=== PATIENT | female | born 1965 | race Caucasian/White ===

== ENCOUNTER 2019-08-27 12:52 | Inpatient (IN) | payer OTHER ==
--- NOTE | 2019-08-27 13:14 | BHS.RME ---
Substance Use & Tx History - Substance Use History Heroin Substance amount: $100 Frequency of use: Daily Substance route: Inhalation (ex: sniffing or snorting), Injection (ex: intravenous or skin popping) Date of Last Use: 08/25/19 Nicotine Substance amount: 1/2 pack Frequency of use: Daily Substance route: Smoking Date of Last Use: 08/27/19 Physical/Psych/Mental Status - Behavior General Behavior: Increased activity (restlessness, agitation) Eye Contact: Normal - Cooperativeness Cooperativeness: Cooperative - Thinking Thought Processes: Tight, Logical, Goal Directed - Physical Health Problems Is patient presently having any pain?: No Does patient presently have any injuries (include location): No Does patient currently have a fever: No Is patient : No COWS - Scale Resting Pulse: 0= [place] 80 or Below Sweatin= Beads of Sweat on Face Restless Observation: 3= Extraneous Movement Pupil Size: 2= Moderately Dilated Bone or Joint Aches: 4=Acute Joint/Muscle Pain Runny Nose/ Eye Tearin= Constantly Teary/Runny GI Upset > 30mins: 3= Vomiting/Diarrhea Tremor Observation: 4= Gross Tremor/Twitching Yawning Observation: 1= 1-2x During Session Anxiety or Irritability: 2=Irritable/Anxious Goose Flesh Skin: 3=Piloerection COWS Score: 29
--- NOTE | 2019-08-27 14:22 | HP ---
COWS - Scale Resting Pulse: 0= [place] 80 or Below Sweatin= Beads of Sweat on Face Restless Observation: 3= Extraneous Movement Pupil Size: 2= Moderately Dilated Bone or Joint Aches: 4=Acute Joint/Muscle Pain Runny Nose/ Eye Tearin= Constantly Teary/Runny GI Upset > 30mins: 3= Vomiting/Diarrhea Tremor Observation: 4= Gross Tremor/Twitching Yawning Observation: 1= 1-2x During Session Anxiety or Irritability: 2=Irritable/Anxious Goose Flesh Skin: 3=Piloerection COWS Score: 29 CIWA Score - Admission Criteria OASAS Guidelines: Admission for Medically Managed Detox: Requires at least one of the followin. CIWA greater than 12 2. Seizures within the past 24 hours 3. Delirium tremens within the past 24 hours 4. Hallucinations within the past 24 hours 5. Acute intervention needed for co occurring medical disorder 6. Acute intervention needed for co occurring psychiatric disorder 7. Severe withdrawal that cannot be handled at a lower level of care (continued vomiting, continued diarrhea, abnormal vital signs) requiring intravenous medication and/or fluids 8. Admitting History and Physical - Admission Chief Complaint: Ms. Anton is a 54 yo woman who presents to [facility] requesting admission to detox for heroin use disorder. History of Present Illness: Ms. Anton is a 54 yo woman who presents to [facility] requesting admission to detox for heroin use disorder. This is her first [facility] admission PMH: Parkinson's disease on carbidopa/levodopa (names/doses of meds unknown) Diabetes type 2, hypothyroidism, positive COVID 19 (June 2018): was in [facility] then to transitional housing for one month PSH:Back surgery for herniated discs Psych: anxiety, bipolar on meds SOC: homeless, in transitional housing: [facility] in the [facility] Legal: none Substance Use History Heroin Substance amount: $100 Frequency of use: Daily Substance route: Inhalation (ex: sniffing or snorting), Injection (ex: intravenous or skin popping) Date of Last Use: 08/25/19 First use in her 's () Overdoses: 4-5, last one was one week ago. Has Narcan at home Relapsed one month to two months ago Nicotine Substance amount: 1/2 pack Frequency of use: Daily Substance route: Smoking Date of Last Use: 08/27/19 First use age 50yo Alcohol No use in 3 years History Source: Patient Limitations to Obtaining History: No Limitations Admission ROS [facility] - HPI Allergies/Adverse Reactions: Allergies Allergy/AdvReac Type Severity Reaction Status Date / Time No Known Drug Allergies Allergy Verified 08/27/19 14:46 Exam Limitations: No Limitations - Ebola screening Have you traveled outside of the country in the last 21 days: No Have you been sick,other than usual withdrawal symptoms: No Do you have a fever: No - Review of Systems Constitutional: Unintentional Wgt. Loss (60 lb weight loss since May of 2019) EENT: reports: Blurred Vision (has reading glasses with her) Respiratory: reports: No Symptoms reported Cardiac: reports: No Symptoms Reported GI: reports: Diarrhea, Nausea, Vomiting : reports: No Symptoms Reported Musculoskeletal: reports: Back Pain, Joint Pain, Muscle Pain, Other (fell several days ago while intoxicated, struck left > right elbow, no LOC) Integumentary: reports: No Symptoms Reported Neuro: reports: Headache Endocrine: reports: Other (checks home glucose, last checked yesterday: 89 in the early afternoon) Hematology: reports: No Symptoms Reported Psychiatric: reports: Anxious Patient History - Smoking Cessation Smoking history: Current every day smoker Have you smoked in the past 12 months: Yes Aproximately how many cigarettes per day: 10 Hx Chewing Tobacco Use: No Initiated information on smoking cessation: Yes 'Breaking Loose' booklet given: 08/27/19 Admission Physical Exam [facility] Physical General Appearance: Yes: Mild Distress, Thin, Anxious HEENTM: Yes: Hearing grossly Normal, Normocephalic, Normal Voice Respiratory: Yes: Lungs Clear, Normal Breath Sounds Neck: Yes: Within Normal Limits, Supple Breast: Yes: Breast Exam Deferred Cardiology: Yes: Regular Rhythm, Regular Rate, S1, S2 Abdominal: Yes: Normal Bowel Sounds, Non Tender, Flat, Soft Back: Yes: Normal Inspection Musculoskeletal: Yes: Within Normal Limits Extremities: Yes: Non-Tender Neurological: Yes: Alert, Normal Response Integumentary: Yes: Track Beaulieu (left antecubital fossa), Other (superficial abrasion left >right elbow, scabbed) Lymphatic: Yes: Within Normal Limits - Diagnostic (1) Opioid withdrawal Current Visit: Yes Status: Acute (2) Diabetes Current Visit: No Status: Chronic (3) Hypothyroidism Current Visit: No Status: Chronic (4) Bipolar 1 disorder Current Visit: Yes Status: Chronic (5) Homeless Current Visit: Yes Status: Chronic Cleared for Admission [facility] - Detox or Rehab [facility] Level of Care: Medically Managed Detox Regimen/Protocol: Methadone Inpatient Rehab Admission - Rehab Decision to Admit Inpatient rehab admission?: No
[2019-08-27] MEDS ORDERED: MAGNESIUM CITRATE 300 ML BOTTLE PO PRN (14:46)
[2019-08-27] MEDS ORDERED: MAGNESIUM HYDROX 2400MG/30ML ORAL SUSPENSION 30 ML CUP PO PRN (14:46)
[2019-08-27] MEDS ORDERED: METHOCARBAMOL 500 MG TABLET PO PRN (14:46)
[2019-08-27] MEDS ORDERED: ONDANSETRON *ODT* 4 MG TABLET SL PRN (14:46)
[2019-08-27] MEDS ORDERED: METHADONE HCL 10 MG TABLET (FOR DETOX USE ONLY) PO ONE (14:46)
[2019-08-27] MEDS ORDERED: MAG HYDROX/AL HYDROX/SIMETH 30 ML UNIT-DOSE CUP PO PRN (14:46)
[2019-08-27] MEDS ORDERED: NICOTINE POLACRILEX 2 MG GUM BUC PRN (14:46)
[2019-08-27] MEDS ORDERED: MENTHOL/PHENOL 1 EACH UD MM PRN (14:46)
[2019-08-27] MEDS ORDERED: ACETAMINOPHEN 325 MG TABLET (FP) PO PRN ×2 (14:46)
[2019-08-27] MEDS ORDERED: IBUPROFEN 400 MG TABLET (FP) PO PRN (14:46)
[2019-08-27] MEDS ORDERED: BISMUTH SUBSALICYLATE 262 MG/15 ML BTL PO PRN (14:46)
[2019-08-27] MEDS ORDERED: cloNIDine HCL 0.1 MG TABLET PO PRN (14:46)
[2019-08-27 15:27] VITALS: BMI 25.2
--- NOTE | 2019-08-27 15:31 | EKG ---
Test Reason : Blood Pressure : / mmHG Vent. Rate : 070 BPM Atrial Rate : 070 BPM P-R Int : 160 ms QRS Dur : 094 ms QT Int : 420 ms P-R-T Axes : 038 015 040 degrees QTc Int : 453 ms NORMAL SINUS RHYTHM NORMAL ECG NO PREVIOUS ECGS AVAILABLE Confirmed by Yang Davey ([id number]) on 08/27/2019 3:31:03 PM Referred By: Confirmed By:Yang Davey
[2019-08-27] MEDS ORDERED: TUBERCULIN PPD 5 TU/0.1ML VIAL ID ONE (17:13)
[2019-08-27 17:16] LABS: HEMOGLOBIN 10.4 GM/dL (10.7-15.3); MCH 27.6 pg (25.7-33.7); MCHC 32.3 g/dl (32.0-36.0); MEAN CELL VOLUME 85.3 fl (80-96); MEAN PLT VOLUME 9.6 fl (7.5-11.1); PLATELET COUNT 238 K/MM3 (134-434); RBC 3.75 M/mm3 (3.60-5.2); RDW 16.1 % (11.6-15.6); WHITE BLOOD COUNT 7.2 K/mm3 (4.0-10.0)
[2019-08-27] MEDS: hydrOXYzine PAMOATE 25 MG CAPSULE (FP) PO SCH ×2 (17:17→22:06)
[2019-08-27] MEDS: PRENATAL VITAMINS W/ FOLIC ACID TABLET (FP) PO SCH (17:18)
[2019-08-27] MEDS: NICOTINE 14 MG/24 HOURS TOPICAL PATCH TD SCH (17:23)
[2019-08-27] MEDS: INSULIN SLIDING SCALE (NOVOLOG) 1 VIAL SQ SCH ×2 (17:25→21:18)
[2019-08-27 17:34] LABS: ALBUMIN 3.3 g/dl (3.4-5.0); BILIRUBIN,TOTAL 0.3 mg/dL (0.2-1); BLOOD UREA NITROGEN 13.5 mg/dL (7-18); CALCIUM 8.7 mg/dL (8.5-10.1); CREATININE 0.8 mg/dL (0.55-1.3); POTASSIUM 3.9 mmol/L (3.5-5.1); TOT PROT 6.2 g/dl (6.4-8.2)
[2019-08-27] MEDS: MELATONIN 5 MG TABLETS PO SCH (22:06)
[2019-08-27] MEDS: THIAMINE HCL 100 MG TABLET (FP) PO SCH (22:06)
[2019-08-28] MEDS: hydrOXYzine PAMOATE 25 MG CAPSULE (FP) PO SCH ×2 (07:19→13:14)
[2019-08-28] MEDS: INSULIN SLIDING SCALE (NOVOLOG) 1 VIAL SQ SCH ×4 (07:21→22:21)
[2019-08-28] MEDS: LEVOTHYROXINE NA 25 MCG TABLET (FP) PO SCH (07:23)
[2019-08-28] MEDS ORDERED: METHADONE HCL 10 MG TABLET (FOR DETOX USE ONLY) ONE (08:45)
[2019-08-28] MEDS ORDERED: METHADONE HCL 5 MG TABLET (FOR DETOX USE ONLY) ONE (08:45)
--- NOTE | 2019-08-28 09:24 | CONSULT ---
[facility] Psychiatric Consult - Data Date of interview: 08/28/19 Admission source: [facility] Identifying data: Patient is a 54 year old single female, mother of one, unemployed, domiciled, and is suppported by SSI. This is patient's first admission to detox at [facility]. Patient admitted to for opiate dependence. Substance Abuse History: Substance Use History. Heroin. Substance amount: $100. Frequency of use: Daily. Substance route: Inhalation (ex: sniffing or snorting), Injection (ex: intravenous or skin popping). Date of Last Use: 08/25/19. First use in her 's (). Overdoses: 4-5, last one was one w [place] ago. Has Narcan at home. Relapsed one month to two months ago. Nicotine. Substance amount: 1/2 pack. Frequency of use: Daily. Substance route: Smoking. Date of Last Use: 08/27/19. First use age 50yo Medical History: Parkinson's disease, Diabetes type 2, hypothyroidism, positive COVID 19 (June 2018), Back surgery for herniated disc Psychiatric History: Ms. Anton reports history of three psychiatric hospitalizations ([facility] in [place], [facility] most recently at [facility] in 2014 due to depressed mood. History of two suicide attempts via overdose. One suicide attempt was by overdose on seroquel + vodka. Reports diagnosis of MDD, Bipolar disorder, and anxiety disorder. Ms. Anton is currently provided with outpatient psychiatric care at [facility]. Patient unsure of her medication name/dosages but reports taking her psychotropic medications several days ago. Will contact patient's pharmacy. At present patient reports feeling sad. Patient denies thoughts to hurt self or others. Physical/Sexual Abuse/Trauma History: Not discussed. Mental Status Exam - Mental Status Exam Alert and Oriented to: Time, Place, Person Cognitive Function: Good Patient Appearance: Well Groomed Mood: Withdrawn Affect: Mood Congruent Patient Behavior: Fatigued, Cooperative Speech Pattern: Clear Voice Loudness: Mildly Soft/Quiet Thought Process: Goal Oriented Thought Disorder: Not Present Hallucinations: Denies Suicidal Ideation: Denies Homicidal Ideation: Denies Insight/Judgement: Poor Sleep: Poorly Appetite: Fair Muscle strength/Tone: Normal Gait/Station: Normal Psychiatric Findings - Problem List ([place] 1, 2,3) (1) Substance induced mood disorder Status: Acute (2) Opioid withdrawal Status: Acute (3) Substance-induced sleep disorder Status: Acute (4) Mood disorder Status: Chronic - Initial Treatment Plan Initial Treatment Plan: [facility] pharmacy contacted @ [phone] and able to speak to pharmacist. As per pharmacist patient received a 30 day prescription on 08/02/19 of the following medications: Lexapro 20mg + Topamax 50mg BID + Amitriptyline 100mg HS + Gabapentin 800mg BID + Cogentin 1mg BID + Vistaril 50mg TID PRN. 1) Will order Lexapro 20mg + Topamax 50mg BID + Amitriptyline 50mg HS + Gabapentin 800mg BID + Amitriptyine 50mg (reduce dose). Will not order Cogentin 1mg as patient does not recall taking cogentin. Benefits and side effects discussed. Verbal consent given.
[2019-08-28] MEDS ORDERED: METHADONE (DETOX) 20 MG, METHADONE (DETOX) 5 MG PO ONE (10:00)
--- NOTE | 2019-08-28 10:29 | PN ---
BHS COWS - Scale Resting Pulse: 0= [place] 80 or Below Sweatin= Chills/Flushing Restless Observation: 0= Sits Still Pupil Size: 0= Normal to Room Light Bone or Joint Aches: 4=Acute Joint/Muscle Pain Runny Nose/ Eye Tearin= None GI Upset > 30mins: 2= Nausea/Diarrhea Tremor Observation of Outstretched Hands: 2= Slight Tremor Visible Yawning Observation: 0= None Anxiety or Irritability: 2=Irritable/Anxious Goose Flesh Skin: 0=Smooth Skin COWS Score: 11 [facility] Progress Note (SOAP) Subjective: Pt admitted yesterday for Heroin detox. c/o chills,nausea/Diarrhea tremors and body aches Objective: 08/28/19 10:27 Vital Signs 08/28/19 08/28/19 03:30 06:18 Temperature 97.7 F Pulse Rate 71 Respiratory 16 16 Rate Blood Pressure 112/76 O2 Sat by Pulse 95 Oximetry (%) Laboratory Tests 08/27/19 08/27/19 08/27/19 14:35 14:35 14:35 WBC 7.2 RBC 3.75 Hgb 10.4 L Hct 32.0 L MCV 85.3 MCH 27.6 MCHC 32.3 RDW 16.1 H Plt Count 238 MPV 9.6 Sodium 142 Potassium 3.9 Chloride 110 H Carbon Dioxide 25 Anion Gap 7 L BUN 13.5 Creatinine 0.8 Est GFR (CKD-EPI)AfAm 95.52 Est GFR (CKD-EPI)NonAf 82.42 POC Glucometer Random Glucose 111 H Calcium 8.7 Total Bilirubin 0.3 AST 11 L ALT 18 Alkaline Phosphatase 87 Total Protein 6.2 L Albumin 3.3 L Syphilis Serology Non-reactive 08/27/19 08/27/19 08/27/19 15:40 16:48 19:12 WBC RBC Hgb Hct MCV MCH MCHC RDW Plt Count MPV Sodium Potassium Chloride Carbon Dioxide Anion Gap BUN Creatinine Est GFR (CKD-EPI)AfAm Est GFR (CKD-EPI)NonAf POC Glucometer 78 68 103 Random Glucose Calcium Total Bilirubin AST ALT Alkaline Phosphatase Total Protein Albumin Syphilis Serology 08/27/19 08/28/19 21:13 07:20 WBC RBC Hgb Hct MCV MCH MCHC RDW Plt Count MPV Sodium Potassium Chloride Carbon Dioxide Anion Gap BUN Creatinine Est GFR (CKD-EPI)AfAm Est GFR (CKD-EPI)NonAf POC Glucometer 122 88 Random Glucose Calcium Total Bilirubin AST ALT Alkaline Phosphatase Total Protein Albumin Syphilis Serology covid-19 result pending labs noted dcreased H/H= 10.432 Assessment: 08/28/19 10:27 CHEIKH withdrawal sx Anemia Plan: cont detox f/u with Covid-19 test result. d/w pt to increase po fluids as tolerated Imodium prn zofran prn Feosol 325 mg po BIDWM
[2019-08-28] MEDS: METOPROLOL TARTRATE 25 MG TABLET (FP) PO SCH (10:54)
[2019-08-28] MEDS: NICOTINE 14 MG/24 HOURS TOPICAL PATCH TD SCH (11:43)
[2019-08-28] MEDS: PRENATAL VITAMINS W/ FOLIC ACID TABLET (FP) PO SCH (11:43)
--- NOTE | 2019-08-28 12:42 | PN ---
BHS Progress Note Note: Psychiatric nurse practitioner note: Patient's psychotropic medications held this morning due to blood pressure of 96/53. Morning medications to be resumed tomorrow.
[2019-08-28] MEDS: GABAPENTIN 400 MG CAPSULE PO SCH ×2 (13:12→22:20)
[2019-08-28] MEDS: ESCITALOPRAM OXALATE 20 MG TABLET PO SCH (13:12)
[2019-08-28] MEDS: TOPIRAMATE 25 MG TABLET PO SCH ×2 (13:13→22:19)
[2019-08-28] MEDS: FERROUS SO4 325 MG TABLET (FP) PO SCH (16:41)
[2019-08-28] MEDS ORDERED: AMITRIPTYLINE HCL 25 MG TABLET PO SCH (22:00)
[2019-08-28] MEDS: MELATONIN 5 MG TABLETS PO SCH (22:20)
[2019-08-28] MEDS: THIAMINE HCL 100 MG TABLET (FP) PO SCH (22:20)
[2019-08-29] MEDS: hydrOXYzine PAMOATE 25 MG CAPSULE (FP) PO PRN (06:39)
[2019-08-29] MEDS: INSULIN SLIDING SCALE (NOVOLOG) 1 VIAL SQ SCH ×4 (06:42→21:13)
[2019-08-29] MEDS: FERROUS SO4 325 MG TABLET (FP) PO SCH ×2 (07:21→17:26)
[2019-08-29] MEDS: LEVOTHYROXINE NA 25 MCG TABLET (FP) PO SCH (07:21)
--- NOTE | 2019-08-29 09:49 | PN ---
BHS COWS - Scale Resting Pulse: 0= [place] 80 or Below Sweatin= Chills/Flushing Restless Observation: 0= Sits Still Pupil Size: 0= Normal to Room Light Bone or Joint Aches: 4=Acute Joint/Muscle Pain Runny Nose/ Eye Tearin= None GI Upset > 30mins: 0= None Tremor Observation of Outstretched Hands: 2= Slight Tremor Visible Yawning Observation: 0= None Anxiety or Irritability: 1=Feels Anxious/Irritable Goose Flesh Skin: 0=Smooth Skin COWS Score: 8 BHS Progress Note (SOAP) Subjective: Saw pt during morning rounds sitting on chair with breakfast tray on her desk but very sleepy but arousable and slow to activity of eating her breakfast. C/o tremors and body aches Pt appeared fatigued. Pt is oriented to place, marketing services vice president and self. After breakfast pt is oob ambulating in and out of room with steady gait and communicating appropriately. Psych meds may be readjusted if possible after collaborative communications. Objective: 08/29/19 09:51 Vital Signs 08/29/19 08/29/19 03:28 05:36 Temperature 96.9 F L Pulse Rate 71 Respiratory 16 18 Rate Blood Pressure 104/71 O2 Sat by Pulse 96 Oximetry (%) Laboratory Tests 08/27/19 08/27/19 08/27/19 14:35 14:35 14:35 WBC 7.2 RBC 3.75 Hgb 10.4 L Hct 32.0 L MCV 85.3 MCH 27.6 MCHC 32.3 RDW 16.1 H Plt Count 238 MPV 9.6 Sodium 142 Potassium 3.9 Chloride 110 H Carbon Dioxide 25 Anion Gap 7 L BUN 13.5 Creatinine 0.8 Est GFR (CKD-EPI)AfAm 95.52 Est GFR (CKD-EPI)NonAf 82.42 POC Glucometer Random Glucose 111 H Calcium 8.7 Total Bilirubin 0.3 AST 11 L ALT 18 Alkaline Phosphatase 87 Total Protein 6.2 L Albumin 3.3 L Syphilis Serology Non-reactive 08/27/19 08/27/19 08/27/19 15:40 16:48 19:12 WBC RBC Hgb Hct MCV MCH MCHC RDW Plt Count MPV Sodium Potassium Chloride Carbon Dioxide Anion Gap BUN Creatinine Est GFR (CKD-EPI)AfAm Est GFR (CKD-EPI)NonAf POC Glucometer 78 68 103 Random Glucose Calcium Total Bilirubin AST ALT Alkaline Phosphatase Total Protein Albumin Syphilis Serology 08/27/19 08/28/19 08/28/19 21:13 07:20 11:46 WBC RBC Hgb Hct MCV MCH MCHC RDW Plt Count MPV Sodium Potassium Chloride Carbon Dioxide Anion Gap BUN Creatinine Est GFR (CKD-EPI)AfAm Est GFR (CKD-EPI)NonAf POC Glucometer 122 88 99 Random Glucose Calcium Total Bilirubin AST ALT Alkaline Phosphatase Total Protein Albumin Syphilis Serology 08/28/19 08/28/19 08/29/19 16:38 20:32 06:35 WBC RBC Hgb Hct MCV MCH MCHC RDW Plt Count MPV Sodium Potassium Chloride Carbon Dioxide Anion Gap BUN Creatinine Est GFR (CKD-EPI)AfAm Est GFR (CKD-EPI)NonAf POC Glucometer 115 119 85 Random Glucose Calcium Total Bilirubin AST ALT Alkaline Phosphatase Total Protein Albumin Syphilis Serology covid -19 result pending Assessment: 08/29/19 09:51 withdrawal sx Plan: cont detox maintain safety increase po fluids psych meds to be held this morning per communication with Dmitriy Boyleassociate professor of violin Ammonia level today, r/o elevation
[2019-08-29] MEDS ORDERED: METHADONE HCL 10 MG TABLET (FOR DETOX USE ONLY) PO ONE (10:00)
[2019-08-29] MEDS: PRENATAL VITAMINS W/ FOLIC ACID TABLET (FP) PO SCH (10:47)
[2019-08-29] MEDS: METOPROLOL TARTRATE 25 MG TABLET (FP) PO SCH (10:52)
[2019-08-29] MEDS: NICOTINE 14 MG/24 HOURS TOPICAL PATCH TD SCH (10:52)
[2019-08-29] MEDS: ESCITALOPRAM OXALATE 20 MG TABLET PO SCH (10:58)
[2019-08-29] MEDS: GABAPENTIN 400 MG CAPSULE PO SCH ×2 (10:59→21:12)
[2019-08-29] MEDS: TOPIRAMATE 25 MG TABLET PO SCH (11:00)
--- NOTE | 2019-08-29 11:18 | PN ---
S Progress Note Note: Psychiatric nurse practitioner note: Informed by RN Arabella and THERAPIST'S ASSISTANT Dominique that patient presented mildly confused, lethargic and with slow speech this morning. Despite presentation patient was oriented to place and self. Nursing staff recommended to hold morning psychotropic medication. Will d/c gabapentin 800mg BID + Elavil 50mg + Topamax 50mg BID. 1) Will order Gabapentin 400mg BID. 2) Ammonia level ordered by FUR FINISHER.
[2019-08-29] MEDS ORDERED: MASKS NR ONE (16:36)
[2019-08-29] MEDS: THIAMINE HCL 100 MG TABLET (FP) PO SCH (21:12)
[2019-08-29] MEDS: MELATONIN 5 MG TABLETS PO SCH (21:12)
[2019-08-30] MEDS: LEVOTHYROXINE NA 25 MCG TABLET (FP) PO SCH (06:56)
[2019-08-30] MEDS: INSULIN SLIDING SCALE (NOVOLOG) 1 VIAL SQ SCH ×4 (06:59→22:07)
[2019-08-30] MEDS ORDERED: METHADONE HCL 10 MG TABLET (FOR DETOX USE ONLY) ONE (09:26)
[2019-08-30] MEDS ORDERED: METHADONE HCL 5 MG TABLET (FOR DETOX USE ONLY) ONE (09:26)
[2019-08-30] MEDS ORDERED: METHADONE (DETOX) 10 MG, METHADONE (DETOX) 5 MG PO ONE (10:00)
--- NOTE | 2019-08-30 10:25 | PN ---
BHS COWS - Scale Resting Pulse: 1= [place] 81-100 Sweatin= No chills or Flushing Restless Observation: 0= Sits Still Pupil Size: 0= Normal to Room Light Bone or Joint Aches: 4=Acute Joint/Muscle Pain Runny Nose/ Eye Tearin= None GI Upset > 30mins: 0= None Tremor Observation of Outstretched Hands: 2= Slight Tremor Visible Yawning Observation: 0= None Anxiety or Irritability: 2=Irritable/Anxious Goose Flesh Skin: 0=Smooth Skin COWS Score: 9 BHS Progress Note (SOAP) Subjective: Pt appeared slightly confused this morning-peeking into another patient's room and stating she needs to flower picker her magazine from the other pt's table. c/o anxiety body aches intermittent sleep Objective: 08/30/19 10:39 Vital Signs 08/30/19 08/30/19 08/30/19 03:30 06:10 08:35 Temperature 97.3 F L 97.8 F Pulse Rate 74 83 Respiratory 16 16 18 Rate Blood Pressure 117/71 103/72 O2 Sat by Pulse 95 99 Oximetry (%) Laboratory Tests 08/27/19 08/27/19 08/27/19 02:10 14:35 14:35 WBC 7.2 RBC 3.75 Hgb 10.4 L Hct 32.0 L MCV 85.3 MCH 27.6 MCHC 32.3 RDW 16.1 H Plt Count 238 MPV 9.6 Sodium 142 Potassium 3.9 Chloride 110 H Carbon Dioxide 25 Anion Gap 7 L BUN 13.5 Creatinine 0.8 Est GFR (CKD-EPI)AfAm 95.52 Est GFR (CKD-EPI)NonAf 82.42 POC Glucometer Random Glucose 111 H Calcium 8.7 Total Bilirubin 0.3 AST 11 L ALT 18 Alkaline Phosphatase 87 Ammonia Total Protein 6.2 L Albumin 3.3 L Syphilis Serology COVID-19 (TONY) Not detected 08/27/19 08/27/19 08/27/19 14:35 15:40 16:48 WBC RBC Hgb Hct MCV MCH MCHC RDW Plt Count MPV Sodium Potassium Chloride Carbon Dioxide Anion Gap BUN Creatinine Est GFR (CKD-EPI)AfAm Est GFR (CKD-EPI)NonAf POC Glucometer 78 68 Random Glucose Calcium Total Bilirubin AST ALT Alkaline Phosphatase Ammonia Total Protein Albumin Syphilis Serology Non-reactive COVID-19 (TONY) 08/27/19 08/27/19 08/28/19 19:12 21:13 07:20 WBC RBC Hgb Hct MCV MCH MCHC RDW Plt Count MPV Sodium Potassium Chloride Carbon Dioxide Anion Gap BUN Creatinine Est GFR (CKD-EPI)AfAm Est GFR (CKD-EPI)NonAf POC Glucometer 103 122 88 Random Glucose Calcium Total Bilirubin AST ALT Alkaline Phosphatase Ammonia Total Protein Albumin Syphilis Serology COVID-19 (TONY) 08/28/19 08/28/19 08/28/19 11:46 16:38 20:32 WBC RBC Hgb Hct MCV MCH MCHC RDW Plt Count MPV Sodium Potassium Chloride Carbon Dioxide Anion Gap BUN Creatinine Est GFR (CKD-EPI)AfAm Est GFR (CKD-EPI)NonAf POC Glucometer 99 115 119 Random Glucose Calcium Total Bilirubin AST ALT Alkaline Phosphatase Ammonia Total Protein Albumin Syphilis Serology COVID-19 (TONY) 08/29/19 08/29/19 08/29/19 06:35 10:35 11:41 WBC RBC Hgb Hct MCV MCH MCHC RDW Plt Count MPV Sodium Potassium Chloride Carbon Dioxide Anion Gap BUN Creatinine Est GFR (CKD-EPI)AfAm Est GFR (CKD-EPI)NonAf POC Glucometer 85 121 Random Glucose Calcium Total Bilirubin AST ALT Alkaline Phosphatase Ammonia 47.60 H Total Protein Albumin Syphilis Serology COVID-19 (TONY) 08/29/19 08/29/19 08/29/19 16:40 21:11 22:49 WBC RBC Hgb Hct MCV MCH MCHC RDW Plt Count MPV Sodium Potassium Chloride Carbon Dioxide Anion Gap BUN Creatinine Est GFR (CKD-EPI)AfAm Est GFR (CKD-EPI)NonAf POC Glucometer 113 68 118 Random Glucose Calcium Total Bilirubin AST ALT Alkaline Phosphatase Ammonia Total Protein Albumin Syphilis Serology COVID-19 (TONY) 08/30/19 08/30/19 06:55 08:01 WBC RBC Hgb Hct MCV MCH MCHC RDW Plt Count MPV Sodium Potassium Chloride Carbon Dioxide Anion Gap BUN Creatinine Est GFR (CKD-EPI)AfAm Est GFR (CKD-EPI)NonAf POC Glucometer 65 118 Random Glucose Calcium Total Bilirubin AST ALT Alkaline Phosphatase Ammonia Total Protein Albumin Syphilis Serology COVID-19 (TONY) Ammonia level 47.60 covid-19 not detected UA pending Assessment: 08/30/19 10:41 withdrawal sx Plan: cont detox increase po fluids maintain safety Lactulose 20 mg po bid Seen by psych today
--- NOTE | 2019-08-30 10:35 | PN ---
S Progress Note Note: Psychiatric nurse practitioner note: As per Nursing staff patient remains confused and mildly disorganized. Will d/c Lexapro 20mg daily + gabapentin 400mg BID..
[2019-08-30] MEDS: GABAPENTIN 400 MG CAPSULE PO SCH (10:36)
[2019-08-30] MEDS: ESCITALOPRAM OXALATE 20 MG TABLET PO SCH (10:36)
[2019-08-30] MEDS ORDERED: LACTULOSE 20 GM/30 ML UDC (FOR ORAL USE ONLY) PO ONE (10:37)
[2019-08-30] MEDS: FERROUS SO4 325 MG TABLET (FP) PO SCH ×2 (10:59→17:50)
[2019-08-30] MEDS: METOPROLOL TARTRATE 25 MG TABLET (FP) PO SCH (10:59)
[2019-08-30] MEDS: PRENATAL VITAMINS W/ FOLIC ACID TABLET (FP) PO SCH (11:00)
[2019-08-30] MEDS: NICOTINE 14 MG/24 HOURS TOPICAL PATCH TD SCH (11:00)
[2019-08-30 11:13] LABS: URINE APPEARANCE CLEAR; URINE BILIRUBIN NEGATIVE (NEGATIVE); URINE COLOR YELLOW; URINE GLUCOSE (UA) NEGATIVE (NEGATIVE); URINE KETONE NEGATIVE (NEGATIVE); URINE LEUK ESTERASE NEGATIVE (NEGATIVE); URINE NITRITE NEGATIVE (NEGATIVE); URINE PROTEIN NEGATIVE (NEGATIVE); URINE UROBILINOGEN 0.2 mg/dL (0.2-1.0)
[2019-08-30] MEDS: hydrOXYzine PAMOATE 25 MG CAPSULE (FP) PO PRN ×3 (11:53→22:06)
[2019-08-30] MEDS: LACTULOSE 20 GM/30 ML UDC (FOR ORAL USE ONLY) PO SCH (22:05)
[2019-08-30] MEDS: THIAMINE HCL 100 MG TABLET (FP) PO SCH (22:06)
[2019-08-30] MEDS: MELATONIN 5 MG TABLETS PO SCH (22:06)
[2019-08-31] MEDS: LEVOTHYROXINE NA 25 MCG TABLET (FP) PO SCH (06:16)
[2019-08-31] MEDS: INSULIN SLIDING SCALE (NOVOLOG) 1 VIAL SQ SCH ×4 (06:21→21:17)
[2019-08-31] MEDS: LACTULOSE 20 GM/30 ML UDC (FOR ORAL USE ONLY) PO SCH ×2 (09:37→21:18)
[2019-08-31] MEDS: PRENATAL VITAMINS W/ FOLIC ACID TABLET (FP) PO SCH (09:37)
[2019-08-31] MEDS: METOPROLOL TARTRATE 25 MG TABLET (FP) PO SCH (09:37)
[2019-08-31] MEDS: FERROUS SO4 325 MG TABLET (FP) PO SCH ×2 (09:37→17:41)
[2019-08-31] MEDS: NICOTINE 14 MG/24 HOURS TOPICAL PATCH TD SCH (09:39)
--- NOTE | 2019-08-31 09:45 | PN ---
BHS COWS - Scale Resting Pulse: 0= OH 80 or Below Sweatin= No chills or Flushing Restless Observation: 0= Sits Still Pupil Size: 0= Normal to Room Light Bone or Joint Aches: 2= Severe Diffuse Aches Runny Nose/ Eye Tearin= None GI Upset > 30mins: 1= Stomach Cramp Tremor Observation of Outstretched Hands: 1= Tremor Starks, Not Seen Yawning Observation: 0= None Anxiety or Irritability: 1=Feels Anxious/Irritable Goose Flesh Skin: 0=Smooth Skin COWS Score: 5 BHS Progress Note (SOAP) Subjective: c/o Anxiety stomach and feet cramps Objective: 08/31/19 09:41 Vital Signs 08/31/19 05:00 Temperature 97.8 F Pulse Rate 63 Respiratory 18 Rate Blood Pressure 94/92 O2 Sat by Pulse 96 Oximetry (%) Laboratory Tests 08/27/19 08/27/19 08/27/19 02:10 14:35 14:35 WBC 7.2 RBC 3.75 Hgb 10.4 L Hct 32.0 L MCV 85.3 MCH 27.6 MCHC 32.3 RDW 16.1 H Plt Count 238 MPV 9.6 Sodium 142 Potassium 3.9 Chloride 110 H Carbon Dioxide 25 Anion Gap 7 L BUN 13.5 Creatinine 0.8 Est GFR (CKD-EPI)AfAm 95.52 Est GFR (CKD-EPI)NonAf 82.42 POC Glucometer Random Glucose 111 H Calcium 8.7 Total Bilirubin 0.3 AST 11 L ALT 18 Alkaline Phosphatase 87 Ammonia Total Protein 6.2 L Albumin 3.3 L Urine Color Urine Appearance Urine pH Ur Specific [place] Urine Protein Urine Glucose (UA) Urine Ketones Urine Blood Urine Nitrite Urine Bilirubin Urine Urobilinogen Ur Leukocyte Esterase Syphilis Serology COVID-19 ([facility]) Not detected 08/27/19 08/27/19 08/27/19 14:35 15:40 16:48 WBC RBC Hgb Hct MCV MCH MCHC RDW Plt Count MPV Sodium Potassium Chloride Carbon Dioxide Anion Gap BUN Creatinine Est GFR (CKD-EPI)AfAm Est GFR (CKD-EPI)NonAf POC Glucometer 78 68 Random Glucose Calcium Total Bilirubin AST ALT Alkaline Phosphatase Ammonia Total Protein Albumin Urine Color Urine Appearance Urine pH Ur Specific [place] Urine Protein Urine Glucose (UA) Urine Ketones Urine Blood Urine Nitrite Urine Bilirubin Urine Urobilinogen Ur Leukocyte Esterase Syphilis Serology Non-reactive COVID-19 ([facility]Y) 08/27/19 08/27/19 08/28/19 19:12 21:13 07:20 WBC RBC Hgb Hct MCV MCH MCHC RDW Plt Count MPV Sodium Potassium Chloride Carbon Dioxide Anion Gap BUN Creatinine Est GFR (CKD-EPI)AfAm Est GFR (CKD-EPI)NonAf POC Glucometer 103 122 88 Random Glucose Calcium Total Bilirubin AST ALT Alkaline Phosphatase Ammonia Total Protein Albumin Urine Color Urine Appearance Urine pH Ur Specific [place] Urine Protein Urine Glucose (UA) Urine Ketones Urine Blood Urine Nitrite Urine Bilirubin Urine Urobilinogen Ur Leukocyte Esterase Syphilis Serology COVID-19 ([facility]Y) 08/28/19 08/28/19 08/28/19 11:46 16:38 20:32 WBC RBC Hgb Hct MCV MCH MCHC RDW Plt Count MPV Sodium Potassium Chloride Carbon Dioxide Anion Gap BUN Creatinine Est GFR (CKD-EPI)AfAm Est GFR (CKD-EPI)NonAf POC Glucometer 99 115 119 Random Glucose Calcium Total Bilirubin AST ALT Alkaline Phosphatase Ammonia Total Protein Albumin Urine Color Urine Appearance Urine pH Ur Specific [place] Urine Protein Urine Glucose (UA) Urine Ketones Urine Blood Urine Nitrite Urine Bilirubin Urine Urobilinogen Ur Leukocyte Esterase Syphilis Serology COVID-19 ([facility]Y) 08/29/19 08/29/19 08/29/19 06:35 10:35 11:41 WBC RBC Hgb Hct MCV MCH MCHC RDW Plt Count MPV Sodium Potassium Chloride Carbon Dioxide Anion Gap BUN Creatinine Est GFR (CKD-EPI)AfAm Est GFR (CKD-EPI)NonAf POC Glucometer 85 121 Random Glucose Calcium Total Bilirubin AST ALT Alkaline Phosphatase Ammonia 47.60 H Total Protein Albumin Urine Color Urine Appearance Urine pH Ur Specific [place] Urine Protein Urine Glucose (UA) Urine Ketones Urine Blood Urine Nitrite Urine Bilirubin Urine Urobilinogen Ur Leukocyte Esterase Syphilis Serology COVID-19 ([facility]Y) 08/29/19 08/29/19 08/29/19 16:40 21:11 22:49 WBC RBC Hgb Hct MCV MCH MCHC RDW Plt Count MPV Sodium Potassium Chloride Carbon Dioxide Anion Gap BUN Creatinine Est GFR (CKD-EPI)AfAm Est GFR (CKD-EPI)NonAf POC Glucometer 113 68 118 Random Glucose Calcium Total Bilirubin AST ALT Alkaline Phosphatase Ammonia Total Protein Albumin Urine Color Urine Appearance Urine pH Ur Specific [place] Urine Protein Urine Glucose (UA) Urine Ketones Urine Blood Urine Nitrite Urine Bilirubin Urine Urobilinogen Ur Leukocyte Esterase Syphilis Serology COVID-19 ([facility]Y) 08/30/19 08/30/19 08/30/19 06:55 08:00 08:01 WBC RBC Hgb Hct MCV MCH MCHC RDW Plt Count MPV Sodium Potassium Chloride Carbon Dioxide Anion Gap BUN Creatinine Est GFR (CKD-EPI)AfAm Est GFR (CKD-EPI)NonAf POC Glucometer 65 118 Random Glucose Calcium Total Bilirubin AST ALT Alkaline Phosphatase Ammonia Total Protein Albumin Urine Color Yellow Urine Appearance Clear Urine pH 6.0 Ur Specific [place] 1.010 Urine Protein Negative Urine Glucose (UA) Negative Urine Ketones Negative Urine Blood Negative Urine Nitrite Negative Urine Bilirubin Negative Urine Urobilinogen 0.2 Ur Leukocyte Esterase Negative Syphilis Serology COVID-19 ([facility]) 08/30/19 08/30/19 08/30/19 11:01 17:20 21:11 WBC RBC Hgb Hct MCV MCH MCHC RDW Plt Count MPV Sodium Potassium Chloride Carbon Dioxide Anion Gap BUN Creatinine Est GFR (CKD-EPI)AfAm Est GFR (CKD-EPI)NonAf POC Glucometer 119 108 123 Random Glucose Calcium Total Bilirubin AST ALT Alkaline Phosphatase Ammonia Total Protein Albumin Urine Color Urine Appearance Urine pH Ur Specific [place] Urine Protein Urine Glucose (UA) Urine Ketones Urine Blood Urine Nitrite Urine Bilirubin Urine Urobilinogen Ur Leukocyte Esterase Syphilis Serology COVID-19 (TONY) 08/31/19 06:13 WBC RBC Hgb Hct MCV MCH MCHC RDW Plt Count MPV Sodium Potassium Chloride Carbon Dioxide Anion Gap BUN Creatinine Est GFR (CKD-EPI)AfAm Est GFR (CKD-EPI)NonAf POC Glucometer 75 Random Glucose Calcium Total Bilirubin AST ALT Alkaline Phosphatase Ammonia Total Protein Albumin Urine Color Urine Appearance Urine pH Ur Specific [place] Urine Protein Urine Glucose (UA) Urine Ketones Urine Blood Urine Nitrite Urine Bilirubin Urine Urobilinogen Ur Leukocyte Esterase Syphilis Serology COVID-19 (TONY) Alert o x 2 nad(more energetic and speech clear) oob ambulating with steady gait Assessment: 08/31/19 09:42 decreased withdrawal sx Plan: cont detox increase po fluids Repeat Ammonia level and CBC today. Pt planned for discharge to [facility] on 09/01/19.
[2019-08-31] MEDS ORDERED: METHADONE HCL 10 MG TABLET (FOR DETOX USE ONLY) PO ONE (10:00)
--- NOTE | 2019-08-31 10:45 | PN ---
BHS Progress Note Note: Psychiatric nurse practitioner note: Patient presents with more energy and more talkative then previous days. Patient is alert +oriented X3 but reports being admitted to [facility] yesterday afternoon and not sure how she arrived to the hospital. Patient was admitted on 08/27/19. Ammonia level pending. Will hold Psychotropic medications until results of ammonia level.
[2019-08-31 14:24] LABS: HEMATOCRIT 33.2 % (32.4-45.2); HEMOGLOBIN 10.7 GM/dL (10.7-15.3); MCH 27.2 pg (25.7-33.7); MCHC 32.2 g/dl (32.0-36.0); MEAN CELL VOLUME 84.6 fl (80-96); MEAN PLT VOLUME 9.3 fl (7.5-11.1); PLATELET COUNT 216 K/MM3 (134-434); RBC 3.92 M/mm3 (3.60-5.2); RDW 16.5 % (11.6-15.6); WHITE BLOOD COUNT 7.1 K/mm3 (4.0-10.0)
--- NOTE | 2019-08-31 15:03 | PN ---
BHS Progress Note Note: Psychiatric nurse practitioner note: Ammonia level results indicate an increase in ammonia level. Ammonial level on 08/29/19: 47.60. Today's ammonia level is 66.60. Will not resume psychotropic medications.
[2019-08-31] MEDS: THIAMINE HCL 100 MG TABLET (FP) PO SCH (21:18)
[2019-08-31] MEDS: DOCUSATE SODIUM 100 MG CAPSULE (FP) PO SCH (21:18)
[2019-08-31] MEDS: MELATONIN 5 MG TABLETS PO SCH (21:18)
[2019-09-01] MEDS ORDERED: METHADONE HCL 5 MG TABLET (FOR DETOX USE ONLY) PO ONE (06:00)
[2019-09-01] MEDS: LEVOTHYROXINE NA 25 MCG TABLET (FP) PO SCH (07:25)
[2019-09-01] MEDS: FERROUS SO4 325 MG TABLET (FP) PO SCH (07:25)
[2019-09-01] MEDS: LACTULOSE 20 GM/30 ML UDC (FOR ORAL USE ONLY) PO SCH ×2 (07:26→13:05)
[2019-09-01] MEDS: DOCUSATE SODIUM 100 MG CAPSULE (FP) PO SCH ×2 (07:26→13:05)
[2019-09-01] MEDS: INSULIN SLIDING SCALE (NOVOLOG) 1 VIAL SQ SCH ×2 (07:29→11:39)
[2019-09-01] MEDS: METOPROLOL TARTRATE 25 MG TABLET (FP) PO SCH (10:15)
[2019-09-01] MEDS: PRENATAL VITAMINS W/ FOLIC ACID TABLET (FP) PO SCH (10:15)
[2019-09-01] MEDS: NICOTINE 14 MG/24 HOURS TOPICAL PATCH TD SCH (10:15)
[2019-09-01 14:04] VITALS: BP 124/81; PULSE 73; TEMP 97.4
--- NOTE | 2019-09-01 18:27 | DS ---
[facility] Detox Discharge Summary Admission Date: 08/27/19 Discharge Date: 09/01/19 - History Present History: Opioid Dependence Additional Comments: Patient was scheduled to go to [facility] ([place], [place]) for aftercare. However, just prior to Discharge, Patient elected to leave and return home instead. Patient appeared somewhat confused. Patient Oriented to , current location, and to current President, uncertain about current date/day of week. Some of Patient 's responses during conversation also not complete coherent. Patient asked is she "could have her pants." When it was explained to Patient that she would receive her outside pants when she leaves Detox Unit, she repeatedly asked same question about receiving her pants. Due to appearance of confusion and due to elevated Ammonia level noted while admitted for Detox, Patient strongly encouraged by both SADDLE AND SIDE WIRE STITCHER and by Government Clerk to consider going to Rehab, after all, so that she can be further monitored for mental status and receive treatment for elevated Ammonia level. However, Patient refused to do so. Patient then advised to consider ER evaluation for possible altered mental status, possibly related to elevated Ammonia level. However, Patient again refused to do so, stating that she "just wanted to leave this place and get out of here." Prescription for Lactulose for aftercare sent to Patient's Pharmacy ([facility], [place], [place]). Patient advised to excelsior picker prescription as soon as possible and to complete full course of medication and to follow-up with Primary Care Medical Provider as soon as possible after Discharge from Detox Unit. Patient also advised to go immediately to nearest ER should any unusual symptoms develop at any time. Patient verbalized understanding of all information / recommendations presented to her prior to departure from detox unit. Patient declined offer of Medication Prescription for home medication at time of Discharge from Detox, noting that she "does not need any medicine." Transportation Car Service arranged to bring Patient back to her home after Discharge from Detox unit. Pertinent Past History: Parkinson's Disease, Type DM, Hypothryroidism, Anxiety, Depression, Bipolar 1 Disorder, Mood Disorder. - Physical Exam Results Vital Signs: Vital Signs Temperature 97.4 F L 09/01/19 13:00 Pulse Rate 73 09/01/19 13:00 Respiratory Rate 18 09/01/19 13:00 Blood Pressure 124/81 09/01/19 13:00 O2 Sat by Pulse Oximetry (%) 98 09/01/19 13:00 Pertinent Admission Physical Exam Findings: WITHDRAWAL SYMPTOMS. Laboratory Tests 08/27/19 08/27/19 08/27/19 02:10 14:35 14:35 WBC 7.2 RBC 3.75 Hgb 10.4 L Hct 32.0 L MCV 85.3 MCH 27.6 MCHC 32.3 RDW 16.1 H Plt Count 238 MPV 9.6 Sodium 142 Potassium 3.9 Chloride 110 H Carbon Dioxide 25 Anion Gap 7 L BUN 13.5 Creatinine 0.8 Est GFR (CKD-EPI)AfAm 95.52 Est GFR (CKD-EPI)NonAf 82.42 POC Glucometer Random Glucose 111 H Calcium 8.7 Total Bilirubin 0.3 AST 11 L ALT 18 Alkaline Phosphatase 87 Ammonia Total Protein 6.2 L Albumin 3.3 L Urine Color Urine Appearance Urine pH Ur Specific [place] Urine Protein Urine Glucose (UA) Urine Ketones Urine Blood Urine Nitrite Urine Bilirubin Urine Urobilinogen Ur Leukocyte Esterase Syphilis Serology COVID-19 (TONY) Not detected 08/27/19 08/27/19 08/27/19 14:35 15:40 16:48 WBC RBC Hgb Hct MCV MCH MCHC RDW Plt Count MPV Sodium Potassium Chloride Carbon Dioxide Anion Gap BUN Creatinine Est GFR (CKD-EPI)AfAm Est GFR (CKD-EPI)NonAf POC Glucometer 78 68 Random Glucose Calcium Total Bilirubin AST ALT Alkaline Phosphatase Ammonia Total Protein Albumin Urine Color Urine Appearance Urine pH Ur Specific [place] Urine Protein Urine Glucose (UA) Urine Ketones Urine Blood Urine Nitrite Urine Bilirubin Urine Urobilinogen Ur Leukocyte Esterase Syphilis Serology Non-reactive COVID-19 (TONY) 08/27/19 08/27/19 08/28/19 19:12 21:13 07:20 WBC RBC Hgb Hct MCV MCH MCHC RDW Plt Count MPV Sodium Potassium Chloride Carbon Dioxide Anion Gap BUN Creatinine Est GFR (CKD-EPI)AfAm Est GFR (CKD-EPI)NonAf POC Glucometer 103 122 88 Random Glucose Calcium Total Bilirubin AST ALT Alkaline Phosphatase Ammonia Total Protein Albumin Urine Color Urine Appearance Urine pH Ur Specific [place] Urine Protein Urine Glucose (UA) Urine Ketones Urine Blood Urine Nitrite Urine Bilirubin Urine Urobilinogen Ur Leukocyte Esterase Syphilis Serology COVID-19 (TONY) 08/28/19 08/28/19 08/28/19 11:46 16:38 20:32 WBC RBC Hgb Hct MCV MCH MCHC RDW Plt Count MPV Sodium Potassium Chloride Carbon Dioxide Anion Gap BUN Creatinine Est GFR (CKD-EPI)AfAm Est GFR (CKD-EPI)NonAf POC Glucometer 99 115 119 Random Glucose Calcium Total Bilirubin AST ALT Alkaline Phosphatase Ammonia Total Protein Albumin Urine Color Urine Appearance Urine pH Ur Specific [place] Urine Protein Urine Glucose (UA) Urine Ketones Urine Blood Urine Nitrite Urine Bilirubin Urine Urobilinogen Ur Leukocyte Esterase Syphilis Serology COVID-19 (TONY) 08/29/19 08/29/19 08/29/19 06:35 10:35 11:41 WBC RBC Hgb Hct MCV MCH MCHC RDW Plt Count MPV Sodium Potassium Chloride Carbon Dioxide Anion Gap BUN Creatinine Est GFR (CKD-EPI)AfAm Est GFR (CKD-EPI)NonAf POC Glucometer 85 121 Random Glucose Calcium Total Bilirubin AST ALT Alkaline Phosphatase Ammonia 47.60 H Total Protein Albumin Urine Color Urine Appearance Urine pH Ur Specific [place] Urine Protein Urine Glucose (UA) Urine Ketones Urine Blood Urine Nitrite Urine Bilirubin Urine Urobilinogen Ur Leukocyte Esterase Syphilis Serology COVID-19 (TONY) 08/29/19 08/29/19 08/29/19 16:40 21:11 22:49 WBC RBC Hgb Hct MCV MCH MCHC RDW Plt Count MPV Sodium Potassium Chloride Carbon Dioxide Anion Gap BUN Creatinine Est GFR (CKD-EPI)AfAm Est GFR (CKD-EPI)NonAf POC Glucometer 113 68 118 Random Glucose Calcium Total Bilirubin AST ALT Alkaline Phosphatase Ammonia Total Protein Albumin Urine Color Urine Appearance Urine pH Ur Specific [place] Urine Protein Urine Glucose (UA) Urine Ketones Urine Blood Urine Nitrite Urine Bilirubin Urine Urobilinogen Ur Leukocyte Esterase Syphilis Serology COVID-19 (TONY) 08/30/19 08/30/19 08/30/19 06:55 08:00 08:01 WBC RBC Hgb Hct MCV MCH MCHC RDW Plt Count MPV Sodium Potassium Chloride Carbon Dioxide Anion Gap BUN Creatinine Est GFR (CKD-EPI)AfAm Est GFR (CKD-EPI)NonAf POC Glucometer 65 118 Random Glucose Calcium Total Bilirubin AST ALT Alkaline Phosphatase Ammonia Total Protein Albumin Urine Color Yellow Urine Appearance Clear Urine pH 6.0 Ur Specific [place] 1.010 Urine Protein Negative Urine Glucose (UA) Negative Urine Ketones Negative Urine Blood Negative Urine Nitrite Negative Urine Bilirubin Negative Urine Urobilinogen 0.2 Ur Leukocyte Esterase Negative Syphilis Serology COVID-19 (TONY) 08/30/19 08/30/19 08/30/19 11:01 17:20 21:11 WBC RBC Hgb Hct MCV MCH MCHC RDW Plt Count MPV Sodium Potassium Chloride Carbon Dioxide Anion Gap BUN Creatinine Est GFR (CKD-EPI)AfAm Est GFR (CKD-EPI)NonAf POC Glucometer 119 108 123 Random Glucose Calcium Total Bilirubin AST ALT Alkaline Phosphatase Ammonia Total Protein Albumin Urine Color Urine Appearance Urine pH Ur Specific [place] Urine Protein Urine Glucose (UA) Urine Ketones Urine Blood Urine Nitrite Urine Bilirubin Urine Urobilinogen Ur Leukocyte Esterase Syphilis Serology COVID-19 (TONY) 08/31/19 08/31/19 08/31/19 06:13 10:10 10:10 WBC 7.1 RBC 3.92 Hgb 10.7 Hct 33.2 MCV 84.6 MCH 27.2 MCHC 32.2 RDW 16.5 H Plt Count 216 MPV 9.3 Sodium Potassium Chloride Carbon Dioxide Anion Gap BUN Creatinine Est GFR (CKD-EPI)AfAm Est GFR (CKD-EPI)NonAf POC Glucometer 75 Random Glucose Calcium Total Bilirubin AST ALT Alkaline Phosphatase Ammonia 66.60 H Total Protein Albumin Urine Color Urine Appearance Urine pH Ur Specific [place] Urine Protein Urine Glucose (UA) Urine Ketones Urine Blood Urine Nitrite Urine Bilirubin Urine Urobilinogen Ur Leukocyte Esterase Syphilis Serology COVID-19 (TONY) 08/31/19 08/31/19 08/31/19 11:20 16:36 21:17 WBC RBC Hgb Hct MCV MCH MCHC RDW Plt Count MPV Sodium Potassium Chloride Carbon Dioxide Anion Gap BUN Creatinine Est GFR (CKD-EPI)AfAm Est GFR (CKD-EPI)NonAf POC Glucometer 82 104 133 Random Glucose Calcium Total Bilirubin AST ALT Alkaline Phosphatase Ammonia Total Protein Albumin Urine Color Urine Appearance Urine pH Ur Specific [place] Urine Protein Urine Glucose (UA) Urine Ketones Urine Blood Urine Nitrite Urine Bilirubin Urine Urobilinogen Ur Leukocyte Esterase Syphilis Serology COVID-19 (TONY) 09/01/19 09/01/19 07:23 11:38 WBC RBC Hgb Hct MCV MCH MCHC RDW Plt Count MPV Sodium Potassium Chloride Carbon Dioxide Anion Gap BUN Creatinine Est GFR (CKD-EPI)AfAm Est GFR (CKD-EPI)NonAf POC Glucometer 101 119 Random Glucose Calcium Total Bilirubin AST ALT Alkaline Phosphatase Ammonia Total Protein Albumin Urine Color Urine Appearance Urine pH Ur Specific [place] Urine Protein Urine Glucose (UA) Urine Ketones Urine Blood Urine Nitrite Urine Bilirubin Urine Urobilinogen Ur Leukocyte Esterase Syphilis Serology COVID-19 (TONY) Lab results noted. - Treatment Hospital Course: Detox Protocol Followed, Detoxed Safely, Responded well, Discharged Condition Good Patient has Accepted a Rehab Referral to: Patient declined Rehab referral just prior to Discharge from Detox Unit. - Medication Discharge Medications: Ambulatory Orders Albuterol Sulfate Inhaler - [Ventolin Hfa Inhaler -] 2 inh PO Q4H PRN 08/27/19 Levothyroxine [Synthroid -] 25 mcg PO DAILY 08/27/19 Metoprolol Tartrate [Lopressor -] 50 mg PO DAILY 08/27/19 Sitagliptin Phosphate [Januvia -] 25 mg PO DAILY@0700 08/27/19 Amitriptyline HCl 100 mg PO HS 08/28/19 Escitalopram Oxalate [Lexapro -] 20 mg PO DAILY 08/28/19 Gabapentin 800 mg PO BID 08/28/19 Topiramate [Topamax] 50 mg PO BID 08/28/19 Lactulose (Oral Use) [Cephulac -] 20 gm PO BID 5 Days #10 udc 09/01/19 - Diagnosis (1) Opioid withdrawal Current Visit: Yes Status: Acute (2) Substance induced mood disorder Current Visit: Yes Status: Acute (3) Substance-induced sleep disorder Current Visit: Yes Status: Acute (4) Bipolar 1 disorder Current Visit: Yes Status: Chronic (5) Homeless Current Visit: Yes Status: Chronic (6) Mood disorder Current Visit: Yes Status: Chronic (7) Diabetes Current Visit: No Status: Chronic Qualifiers: Diabetes mellitus type: type 2 Diabetes mellitus moth exterminator insulin use: with senior care use Diabetes mellitus complication status: with other specified complication Qualified Code(s): E11.69 - Type 2 diabetes mellitus with other specified complication; Z79.4 - FDC (current) use of insulin (8) Hypothyroidism Current Visit: No Status: Chronic Qualifiers: Hypothyroidism type: unspecified Qualified Code(s): E03.9 - Hypothyroidism, unspecified (9) Hyperammonemia Current Visit: Yes Status: Acute - AMA Did Patient Leave Against Medical Advice: No
== END 2019-09-01 16:25 | disposition home or self-care (01) | DRG 897 ==
LOC: YASAS 12:52 → Y5N DETOX 15:26
PROVIDERS: ADMIT Allergy & Immunology; ATTEND Allergy & Immunology
PROC: HZ2ZZZZ Detoxification Services for Substance Abuse Treatment (ICD-10-PCS; principal; 2019-08-27)
DX: F11.23 Opioid dependence with withdrawal (principal); F19.282 Other psychoactive substance dependence with psychoactive substance-induced sleep disorder; F31.89 Other bipolar disorder; E72.20 Disorder of urea cycle metabolism, unspecified; F17.210 Nicotine dependence, cigarettes, uncomplicated; F19.24 Other psychoactive substance dependence with psychoactive substance-induced mood disorder; F39 Unspecified mood [affective] disorder; E11.69 Type 2 diabetes mellitus with other specified complication; E03.9 Hypothyroidism, unspecified; G20 Parkinson's disease; D64.9 Anemia, unspecified; Z86.19 Personal history of other infectious and parasitic diseases; Z79.4 Long term (current) use of insulin; Z59.0 Homelessness
CPT/HCPCS: 36415; 80053; 81003; 82140; 82962; 85027; 86780; 93005; 93010; U0003